=== PATIENT | female | born 2000 | race Two or more races ===

== ENCOUNTER 2020-10-30 20:39 | Emergency (ER) | payer OTHER ==
[~2020-10-30] VITALS: Ht 157.5 cm; Wt 56.7 kg
[2020-10-31] MEDS ORDERED: ZYNCOF 20-400120 ML PO (02:03)
[2020-10-31] MEDS ORDERED: ALBUTEROL2.5 MG/3 M IH (02:03)
[2020-10-31] MEDS ORDERED: ZITHROMAX500 MG PO (02:03)
== END 2020-10-31 02:13 ==
LOC: ER 20:39
DX: J40 Bronchitis, not specified as acute or chronic (principal); B96.0 Mycoplasma pneumoniae [M. pneumoniae] as the cause of diseases classified elsewhere; B34.9 Viral infection, unspecified; Z03.818 Encounter for observation for suspected exposure to other biological agents ruled out